=== PATIENT | female | born 1940 | race Caucasian/White ===

== ENCOUNTER 2017-02-09 17:31 | Observation (INO) | payer MEDICARE, OTHER ==
--- NOTE | ~2017-02-09 | CR63 ---
[facility] A Service of [facility] & [facility] RADIOLOGY TEXT RESULTS PATIENT: MÓNICA VALERIO LOCATION: [place] [address]- : 41 UNIT #: [id number] AGE: [address]: Bharathi Spivey MD SEX: F ORDER DR: [id number] [facility] [address] [place], [place] [address] [id number] I MR#: [id number] #: [id number] NAME: MÓNICA VALERIO : 1940 SEX: F STUDY DATE/TIME: 02/10/2017 20:11 UNIT: [facility] ROOM: [facility] STUDY DESCRIPTION: CR Chest 2 View Attending Physician: Bharathi Spivey M.D. Ordering Physician: Siria Husain M.D. Primary Care Physician: Panchito Prado Jr., M.D. MEDICAL IMAGING REPORT This report is preliminary unless electronic signature is present EXAM PA and lateral chest HISTORY Shortness of air, weakness and dizziness for 3 days. FINDINGS Two vies of the chest demonstrate mild elevation of the right hemidiaphragm and minimal fluid or pleural thickening in the right base. Cardiac size and pulmonary vascularity are within normal limits. Small calcified mediastinal and hilar nodes and small calcified granulomas in both lungs. IMPRESSION 1. No acute findings and no evidence of active disease in the lungs. 2. Minimal probable pleural thickening in the lateral right base and mild elevation of the right hemidiaphragm. Dictated by... Sedrick Perez M.D. THIS IS AN ELECTRONICALLY VERIFIED REPORT Sedrick Perez M.D. at 02/11/2017 9:05 PM Hebert TD: 02/11/2017 11:48 JOB #: [id number] MEDICAL IMAGING REPORT Page 1 of 1 COPY
--- NOTE | ~2017-02-09 | HP ---
Unit #: [id number] #: [id number] Patient: MÓNICA VALERIO [id number] [address] [address] [id number] I MR#: [id number] NAME: MÓNICA VALERIO ROOM: [address] Age: 76 Sex: F Admission Date: 02/09/2017 : 1940 Attending Physician: James Lisa M.D. Primary Care Physician: Panchito Prado Jr., M.D. HISTORY AND PHYSICAL CHIEF COMPLAINT Elevated blood sugars. HISTORY OF PRESENT ILLNESS The patient is a 76-year-old female with a history of ischemic cardiomyopathy, atrial fibrillation, COPD, and status post right lobectomy for resection of nonsmall cell carcinoma, who presented to the emergency room with abnormal blood sugar. The patient stated that patient checked the sugars earlier this morning, and the sugars were high up to 592. The patient called the primary care doctor, and he recommended her to come to the ER. The patient also complains of dizziness associated with nausea and vomiting. The patient is being admitted for the above reasons. The blood sugar in the emergency room is high up to 323. Patient had a CT of the head and CT of the abdomen and pelvis and both were negative. PAST MEDICAL HISTORY 1. History of ischemic cardiomyopathy with an EF of 35% to 40%, status post stent. 2. History of chronic atrial fibrillation for which she is anticoagulated. 3. Peripheral vascular disease. 4. Peptic ulcer disease. 5. Previous left arm DVT secondary to PICC line a few years ago. 6. Chronic obstructive pulmonary disease. 7. Diabetes. 8. Right lung mass. 9. Hyperlipidemia. 10. Grave disease. PAST SURGICAL HISTORY 1. Hysterectomy. 2. Appendectomy. 3. Right eye surgery. ALLERGIES SULFA, CODEINE, LATEX, SACCHARINE. HOME MEDICATIONS 1. Synthroid. 2. Toprol. 3. Potassium. 4. Crestor. 5. Cardizem. 6. Flonase. Unit #: [id number] #: [id number] Patient: MÓNICA VALERIO 7. [place]. 8. Humalog mix. 9. Proventil. 10. Symbicort. 11. Bumex. 12. Wellbutrin. 13. Calcium. FAMILY HISTORY Coronary artery disease. SOCIAL HISTORY The patient lives with her . She stopped smoking many years ago and does not drink alcohol. REVIEW OF SYSTEMS A 14-point review of systems was performed and only pertinent positive findings are described above. The remaining are negative. PHYSICAL EXAMINATION GENERAL: Patient is sitting in bed not in acute distress. VITAL SIGNS: Temperature 97.5, pulse 70, respiratory rate 16, blood pressure 142/72, and saturating 97% on room air. Blood pressure lying is 131/84 and heart rate lying is 76. Blood pressure sitting is 114/84 and heart rate sitting is 74. Repeat standing is 117/63 and heart rate standing is 80. Saturating 97% on room air. HEENT: Head normocephalic, atraumatic. Pupils equal, round, and reactive to light and accommodation. Extraocular movements are intact. Dry mucous membranes. NECK: Supple. No JVD. LUNGS: Decreased air entry at the bases. HEART: Irregular rate and rhythm. ABDOMEN: Soft. Positive bowel sounds. EXTREMITIES: No cyanosis, no clubbing. NEUROLOGIC: Patient is alert, awake, and oriented. No gross focal motor deficit. DIAGNOSTIC STUDIES LABORATORY: Glucose 323, BUN 17, creatinine 1.5, sodium 136, potassium 3.9, chloride 101, bicarb 26, calcium 9.2, total protein 7.7, AST 21, ALT 19, and alkaline phosphatase 109. Lipase 21. Troponin is 0.03. Beta-hydroxybutyrate is 0.09. INR is 2. WBC 9.2, hemoglobin 14.8, hematocrit 45.2, and platelets 265,000. Urinalysis shows 500 glucose and urobilinogen 0.2. CARDIOLOGY: EKG shows atrial fibrillation with a slow ventricular response and low-voltage QRS. ASSESSMENT 1. Dizziness. 2. Uncontrolled diabetes mellitus. 3. Acute kidney injury. 4. Nausea and vomiting. PLAN Admit the patient to observation with telemetry. Continue with gentle IV fluids with normal saline at 60 mL/hour for 10 hours only, half normal saline, continue with sliding scale. Will have the PCP/Endocrine consult Unit #: [id number] #: [id number] Patient: MÓNICA VALERIO as patient was referred by the PCP. Repeat the labs again, CBC, BMP, and hemoglobin A1c in the morning, and further recommendations will follow. Dictated by Sofie Castano/am TD: 02/09/2017 20:39 JOB #: [id number] HISTORY AND PHYSICAL X X HISTORY AND PHYSICAL
--- NOTE | ~2017-02-09 | CT71 ---
[facility] A Service of [facility] & [facility] RADIOLOGY TEXT RESULTS PATIENT: MÓNICA VALERIO LOCATION: [place] [address] : 41 UNIT #: [id number] AGE: [address]: Bharathi Spivey MD SEX: F ORDER DR: [id number] [facility] [address] [place], [place] [address] [id number] I MR#: [id number] #: [id number] NAME: MÓNICA VALERIO : 1940 SEX: F STUDY DATE/TIME: 02/09/2017 16:09 UNIT: [facility] ROOM: [facility] STUDY DESCRIPTION: CT Head Wo Contrast Attending Physician: James Lisa M.D. Ordering Physician: Henry Sullivan D.O. Primary Care Physician: Panchito Prado Jr., M.D. MEDICAL IMAGING REPORT This report is preliminary unless electronic signature is present EXAM CT brain without contrast, 02/09/2017 COMPARISON 04/11/2013 HISTORY SUPPLIED Dizziness, blurring vision beginning today. TECHNIQUE Transaxial imaging of the brain was performed without contrast and compared directly to the patient's prior study of 04/11/2013. This CT exam was performed with one or more of the following radiation dose reduction techniques: automatic exposure control, adjustment of mA and/or kV according to patient size, and iterative reconstruction. FINDINGS Ventricular size and configuration is normal for the patient's age. No intra or extraaxial mass lesions, fluid collections or mass effect are seen. No focal areas of low attenuation or hemorrhage. There are atherosclerotic calcifications in the vertebral arteries, basilar artery and carotid siphons. CONCLUSION Atherosclerotic calcifications. No acute intracranial findings. Dictated by... Radames Gunter M.D. THIS IS AN ELECTRONICALLY VERIFIED REPORT [facility] A Service of [facility] & [facility] RADIOLOGY TEXT RESULTS PATIENT: MÓNICA VALERIO LOCATION: [facility] 5511-23 : 41 UNIT #: [id number] AGE: [address]: Bharathi Spivey MD SEX: F ORDER DR: Radames Gunter M.D. at 02/11/2017 3:10 PM TULIO/janis TD: 02/09/2017 23:22 JOB #: [id number] MEDICAL IMAGING REPORT Page 1 of 1 COPY
--- NOTE | ~2017-02-09 | DS ---
Unit #: [id number] #: [id number] Patient: MÓNICA VALERIO [id number] [address] [place], [place] [address] [id number] I MR#: [id number] NAME: MÓNICA VALERIO ROOM: 551 Age: 76 Sex: F Admission Date: 02/09/2017 : 1940 Discharge Date: 02/11/2017 Attending Physician: Bharathi Spivey M.D. Primary Care Physician: Panchito Prado Jr., M.D. DISCHARGE SUMMARY ADMITTING DIAGNOSES Elevated blood sugars, lightheadedness and dizziness, noncompliance with medications, history of ischemic cardiomyopathy, atrial fibrillation, chronic obstructive pulmonary disease, history of right lobectomy for non-small cell lung cancer. FURTHER DIAGNOSIS Acute kidney injury. CONSULTANTS Dr. Husain. HISTORY OF PRESENTING ILLNESS The patient is a 76-year-old lady with past medical history of ischemic cardiomyopathy, atrial fibrillation on anticoagulation, COPD, right lobe lobectomy, presented to the emergency room with chief complaint of elevated blood sugars and not feeling well. She mentioned that she was feeling lightheaded and dizzy when she presented to the emergency room. In the initial evaluation, she was noted to have elevated creatinine high up to 1.5 with a baseline around 1.1. She was started on IV fluids. She was started on insulin. Her initial sugars were in 323. She was on 30 units of 75-25 b.i.d. at home. She follows up with Dr. Husain and we request him to evaluate the patient. Dr. Husain recommended to continue the same dosage of insulin. In addition, he is recommending to start her on Glucotrol 5 mg p.o. b.i.d. Sugars are down to 200s. She is doing better and she wants to go home. She also had a blood culture which was positive, initially was Gram-positive cocci, came back as coag-negative staph. We treated her vancomycin and we stop the vancomycin as coag-negative staph could be contaminant. She is doing better today. I spoke with the patient and her spouse in the room, encouraged her to be compliant with her medications. We are discharging her home today. PHYSICAL EXAMINATION VITAL SIGNS: On the day of the discharge, temperature 97.6, pulse is 70, respirations 20, blood pressure 113/58. GENERAL: The patient is alert and oriented x3, lying in the bed, in no acute distress. HEENT: Normocephalic, atraumatic. No icterus. PERRLA. Extraocular movements intact. NECK: Supple. No JVD. HEART: S1, S2. Regular rate and rhythm. CHEST: Bilateral equal entry. Clear to auscultation. ABDOMEN: Soft and nontender. EXTREMITIES: No edema. Normal pulses. DISCHARGE MEDICATIONS Glucotrol 5 mg p.o. b.i.d. is only new medication. She will be continuing Unit #: [id number] #: [id number] Patient: MÓNICA VALERIO all the rest of the home medications. Other medications include Proventil 0.83 mcg inhalation q.4 p.r.n. shortness of breath; Symbicort 160/4.5 mcg two puffs b.i.d.; Flonase 0.05% nasal spray; Spiriva 18 mcg inhalation; Coumadin 3 mg Thursday, Thursday, Thursday and 2 mg on Thursday, , Thursday, and Thursday; Wellbutrin XL 150 mg p.o. daily; Cardizem 120 mg p.o. daily; Metoprolol-XL 25 mg b.i.d. I am holding her Bumex, Crestor 20 mg at bedtime; Humalog 75-25, 30 units subcu daily; Singulair 10 mg at bedtime. She will be taking her home dosage of [place] (hydrocodone and acetaminophen) 7.5/325 mg. kindly note, I am not giving her any new prescriptions. She will be taking her own medications. Calcium and vitamin D 500 mg one tablet p.o. daily, KCl 20 mEq p.o. b.i.d., and Synthroid 125 mcg p.o. daily. We will let her restart Bumex in couple of days. Total time spent in her discharge 35 minutes. Dictated by..Sofie Negron/adriano TD: 02/12/2017 08:04 JOB #: [id number] DISCHARGE SUMMARY Page 1 of 1 X X DISCHARGE SUMMARY
--- NOTE | ~2017-02-09 | CO ---
Unit #: [id number] #: [id number] Patient: MÓNICA VALERIO [id number] [address] [address] [id number] I MR#: [id number] NAME: MÓNICA VALERIO ROOM: 55 Age: 76 Sex: F Admission Date: 02/09/2017 : 1940 Attending Physician: Bharathi Spivey M.D. Primary Care Physician: Panchito Prado Jr., M.D. CONSULTATION REPORT REASON FOR CONSULTATION High blood sugars. HISTORY OF PRESENT ILLNESS A 76-year-old female with ischemic cardiomyopathy, atrial fibrillation, COPD, type 2 diabetes mellitus, history of lung CA, status post right lobectomy of her lung, who reports that she has not been feeling well over the last few days. She has been having some dizziness, some nausea and vomiting. Her blood sugar this morning was 590. She called her primary care physician, who advised her to go to the emergency room. Her blood sugar was 323. Further workup done on her blood cultures. She had one set of blood cultures positive for gram-positive cocci. She has been currently started on IV antibiotics. Her CT of the head is negative and CT of the abdomen is normal. PAST MEDICAL HISTORY Ischemic cardiomyopathy with an ejection fraction 35% to 40% chronic anticoagulation therapy, peripheral vascular disease, peptic ulcer disease, type 2 diabetes mellitus, hyperlipidemia, hyperthyroidism, history of Graves ophthalmopathy. PAST SURGICAL HISTORY Hysterectomy, appendectomy, right eye surgery. ALLERGIES Sulfa drugs, codeine, and latex. HOME MEDICATIONS List is reviewed. The patient is on Humalog Mix 75/25 30 units b.i.d., levothyroxine, Toprol, potassium, Crestor, Cardizem, Bumex, Wellbutrin, and calcium. FAMILY HISTORY Coronary artery disease. SOCIAL HISTORY She lives with her , stopped tobacco many years ago. No alcohol. REVIEW OF SYSTEMS A 12-point review of systems is completed, please see HPI. PHYSICAL EXAMINATION GENERAL: Awake, alert, oriented to time, place, and person, in no acute respiratory distress. Unit #: [id number] #: [id number] Patient: MÓNICA VALERIO VITAL SIGNS: Afebrile temperature 97.8, pulse is 61, blood pressure 112/62. HEENT: EOMI. Pupils equally reactive to light. NECK: Supple. No thyromegaly noted. CHEST: Good air entry. CVS: Regular rhythm. No murmurs. ABDOMEN: Soft, nontender, bowel sounds positive. EXTREMITIES: No ulcers or amputations noted. DIAGNOSTIC STUDIES LABORATORY RESULTS: Labs reviewed. Her A1c is 13.7. UA is negative. ASSESSMENT 1. Type 2 diabetes mellitus, poorly controlled. 2. Bacteremia gram-positive cocci. 3. Ischemic cardiomyopathy. 4. Chronic atrial fibrillation. 5. Anticoagulation therapy. 6. Hypothyroidism. PLAN 1. We will restart her home insulin 70/30 NovoLog mix 30 units subcu b.i.d. She has received the first dose just now. 2. NovoLog medium dose supplement sliding scale. Continue Synthroid 125 mcg daily. Continue Lipitor 80 mg daily. Accu-Cheks a.c. and h.s. We will continue to follow the patient for further management. Dictated by... Sofie Pablo/adriano TD: 02/11/2017 03:26 JOB #: [id number] CONSULTATION REPORT Page 1 of 1 X Siria Husain MD X CONSULTATION REPORT
--- NOTE | ~2017-02-09 | EKG ---
PATIENT: MÓNICA VALERIO UNIT #: [id number] Ventricular Rate: 56 BPM Atrial Rate: 62 BPM QRS Duration: 84 ms Q-T Interval: 448 ms QTC Calculation(Bezet): 432 ms Calculated R Warren: 10 degrees Calculated T Warren: 28 degrees Diagnosis Line: Atrial fibrillation with slow ventricular response Diagnosis Line: Low voltage QRS Diagnosis Line: Abnormal ECG Diagnosis Line: When compared with ECG of 26-FEB-2015 16:59, Diagnosis Line: Criteria for Septal infarct are no longer Present Diagnosis Line: Confirmed by NADEGE MCNEILL MD ([id number]) on Diagnosis Line: 02/10/2017 2:24:17 PM INTERPRETING MD: OSITO HILL
--- NOTE | ~2017-02-09 | CT4 ---
[facility] A Service of [facility] RADIOLOGY TEXT RESULTS PATIENT: MÓNICA VALERIO LOCATION: [facility] 55-01 : 41 UNIT #: [id number] AGE: [address]: Bharathi Spivey MD SEX: F ORDER DR: [id number] [facility] [address] [facility] [place] [facility] [place], [place] [address] [id number] I MR#: [id number] #: [id number] NAME: MÓNICA VALERIO : 1940 SEX: F STUDY DATE/TIME: 02/09/2017 16:14 UNIT: [facility] ROOM: [facility] STUDY DESCRIPTION: CT Abd and Pelv Wo Cont Attending Physician: James Lisa M.D. Ordering Physician: Henry Sullivan D.O. Primary Care Physician: Panchito Prado Jr., M.D. MEDICAL IMAGING REPORT This report is preliminary unless electronic signature is present EXAM CT of the abdomen and pelvis without contrast INDICATIONS 76-year-old female with nausea, vomiting and diarrhea this morning. TECHNIQUE CT of the abdomen and pelvis was performed without contrast. Coronal and sagittal reformatted images obtained. This CT exam was performed with one or more of the following radiation dose reduction techniques: Automatic exposure control, adjustment of mA and/or kV according to patient size, and iterative reconstruction. No comparisons. FINDINGS There is minimal scar or atelectasis in the lung bases. Cholecystectomy. Liver unremarkable. Spleen unremarkable. Large cyst in the upper pole of the left kidney. Focal area of cortical scarring in the right kidney. Parapelvic cyst in the right kidney. The adrenal glands are unremarkable. There is some fatty infiltration of the pancreas. No dilated loops of bowel. PELVIS: Sigmoid diverticulosis. No evidence of diverticulitis. No free fluid. Hysterectomy. Bone windows are unremarkable. IMPRESSION 1. No acute intraabdominal or pelvic abnormality. 2. No evidence of bowel obstruction. 3. Sigmoid diverticulosis. No diverticulitis. 4. Bilateral renal cysts. 5. Cholecystectomy. [facility] A Service of [facility] RADIOLOGY TEXT RESULTS PATIENT: MÓNICA VALERIO LOCATION: [facility] 551-01 : [birth year] UNIT #: [id number] AGE: [address]: Bharathi Spivey MD SEX: F ORDER DR: Dictated by... Akshat Escobar M.D. THIS IS AN ELECTRONICALLY VERIFIED REPORT Akshat Escobar M.D. at 02/10/2017 8:08 AM ARS/loren TD: 02/09/2017 23:30 JOB #: [id number] MEDICAL IMAGING REPORT Page 1 of 1 COPY
[2017-02-09 13:52] LABS: URINE SOURCE CLEAN CATCH
[2017-02-09 13:57] LABS: URINE APPEARANCE CLEAR; URINE BILIRUBIN NEG (NEG); URINE BLOOD NEG (NEG); URINE COLOR YELLOW; URINE GLUCOSE 500 MG/DL (NEG); URINE KETONE NEG (NEG); URINE LEUKOCYTE ESTERASE NEG (NEG); URINE NITRATE NEG (NEG); URINE PROTEIN NEG (NEG); URINE UROBILINOGEN 0.2 MG/DL (NEG)
[2017-02-09 13:59] LABS: BASOPHIL% 0.4 % (0-2.5); EOSINOPHIL# 0.2 X10e3 (0-0.7); EOSINOPHIL% 2.6 % (0.0-7.0); HEMATOCRIT 45.2 % (35.0-45.0); HEMOGLOBIN 14.8 gm/dL (12.0-16.0); LYMPHOCYTE# 1.7 X10e3 (1.0-3.5); MEAN CELL VOLUME 89.1 FL (83-96); MEAN CORPUSCULAR HEMOGLOBIN 29.2 PG (28-34); MEAN CORPUSCULAR HGB CONC 32.8 g/dL (30-36); MEAN PLATELET VOLUME 9.8 FL (6.5-11.5); MONOCYTE# 0.7 X10e3 (0-1.0); MONOCYTE% 7.3 % (3.0-12.0); NEUTROPHIL# 6.5 X10e3 (1.5-7.1); NEUTROPHIL% 70.7 % (40-75); PLATELET COUNT 265 X10e3 (140-420); RED BLOOD COUNT 5.07 X10e (3.90-5.30); RED CELL DISTRIBUTION WIDTH 14.7 % (11.0-15.5); WHITE BLOOD COUNT 9.2 X10e3 (4.0-10.5)
[2017-02-09 14:08] LABS: CULTURE INDICATED? NO
[2017-02-09 14:27] LABS: ALBUMIN SERUM 3.7 g/dL (3.5-5.0); BETA HYDROXYBUTYRATE 0.09 MMOL/L (0.02-0.27); BILIRUBIN, DIRECT 0.1 mg/dL (0.0-0.2); BILIRUBIN,INDIRECT 0.4 mg/dL (0.0-0.9); BILIRUBIN,TOTAL 0.5 mg/dL (0.2-2.0); BUN/CREATININE RATIO 11.33; CALCIUM SERUM 9.2 mg/dL (8.4-10.2); CREATININE SERUM 1.5 mg/dL (0.6-1.4); POTASSIUM 3.9 mmol/L (3.5-5.1); PROTEIN TOTAL SERUM 7.7 g/dL (6.0-8.3)
[2017-02-09 14:30] LABS: DIFF IND NO
[2017-02-09 15:04] LABS: PROTHROMBIN TIME (PATIENT) 21.7 SECONDS (9.6-11.5)
[2017-02-09 15:53] LABS: POC - CKMB 2.7 ng/mL (0.0-7.9); POC - TROPONIN <0.05 ng/mL (<=0.05)
[2017-02-09 16:31] LABS: POC - CKMB 1.2 ng/mL (0.0-7.9); POC - TROPONIN <0.05 ng/mL (<=0.05)
[~2017-02-09 17:31] MED LIST: ACETAMINOPHEN PO; ALAVERT10 MG PO; ALBUTEROL; ALBUTEROL MININEB NEB; ALBUTEROL17 GM INH; AMARYL2 MG PO; ASPIRIN81 M1 PO; BUPROPION HCL150 M2 PO; BUPROPION HCL150 MG PO; CARTIA XT120 MG PO; COUMADIN2.5 MG PO; COUMADIN3 MG PO; COUMADIN4 MG PO; COUMADIN5 MG PO; DUONEB 2.5-0.5 M3 ML NEB; ESTRACE42.5 GM; FLAGYL PO; FLONASE 0.05% N16 G1; FUROSEMIDE40 MG/5 ML IVP; GLIMEPIRIDE2 MG PO; IMDUR-ER30 M1 PO; INSULIN ASPART; K-DUR10 MEQ PO; K-DUR20 ME1 PO; LASIX PO; LASIX80 MG PO; LEVAQUIN PO; LEVEMIR100 U/ML SQ; LEVOTHROID125 MCG PO; LISINOPRIL2.5 MG PO; LORTAB 5/500 TA1 TA1 PO; MEDROL4 MG/DOSE- PO; METFORMIN HCL500 M1 PO; METFORMIN HCL500 M2 PO; METOPROLOL SUCC25 MG PO; METOPROLOL TAR25 MG PO; MICRO-K10 MEQ PO; NICOTINE TRANSD21 MG TD; NITROGLYGERIN0.4 MG SL; NITROSTAT0.4 MG SL; NOVOLOG; NOVOLOG100 U/ML SUBQ; ONGLYZA; ONGLYZA5 MG PO; PANTOPRAZOLE SO40 MG PO; PRAVACHOL20 MG PO; PRAVASTATIN SOD20 MG PO; PREMARIN; PROTONIX PO; SPIRIVA18 MCG IH; SPIRIVA18 MCG INH; SYMBICORT 160/4.6 GM; SYMBICORT INH; SYNTHROID0.1 MG PO; SYNTHROID125 PO; VITAMIN D50000 UNIT PO; WELLBUTRIN SR150 MG PO; WELLBUTRIN100 MG PO; ZAROXYLYN PO; ZITHROMAX1 G/PKT PO; [UNRECOGNIZED DRUG - OTHER]
[2017-02-09] MEDS ORDERED: BUMEX2 MG PO (17:45)
[2017-02-09] MEDS ORDERED: SYMBICORT INH (17:45)
[2017-02-09] MEDS ORDERED: PROVENTIL0.83 MG/ML INH (17:45)
[2017-02-09] MEDS ORDERED: WELLBUTRIN XL150 M1 PO (17:46)
[2017-02-09] MEDS ORDERED: CALCIUM 500 + D1 TAB PO (17:48)
[2017-02-09] MEDS ORDERED: CARDIZEM CD120 M1 PO (17:49)
[2017-02-09] MEDS ORDERED: FLONASE 0.05% N16 G1 (17:50)
[2017-02-09] MEDS ORDERED: NORCO 7.5-3251 EACH PO (17:54)
[2017-02-09] MEDS ORDERED: SYNTHROID125 PO (18:05)
[2017-02-09] MEDS ORDERED: HUMALOG MI100 UNIT/5 SUBQ (18:05)
[2017-02-09] MEDS ORDERED: POTASSIUM CHLO10 ME1 PO (18:06)
[2017-02-09] MEDS ORDERED: TOPROL XL PO (18:06)
[2017-02-09] MEDS ORDERED: CRESTOR PO (18:06)
[2017-02-09] MEDS ORDERED: COUMADIN3 MG PO (23:30)
[2017-02-09] MEDS ORDERED: WARFARIN SODIUM2 MG PO (23:31)
[2017-02-09] MEDS ORDERED: SINGULAIR PO (23:32)
[2017-02-09] MEDS ORDERED: SPIRIVA18 MCG INH (23:32)
[2017-02-10 06:55] LABS: BASOPHIL% 0.3 % (0-2.5); DIFF IND NO; EOSINOPHIL# 0.2 X10e3 (0-0.7); HEMATOCRIT 41.4 % (35.0-45.0); HEMOGLOBIN 13.4 gm/dL (12.0-16.0); LYMPHOCYTE# 2.2 X10e3 (1.0-3.5); LYMPHOCYTE% 30.2 % (17.0-45.0); MEAN CELL VOLUME 89.5 FL (83-96); MEAN CORPUSCULAR HGB CONC 32.4 g/dL (30-36); MEAN PLATELET VOLUME 9.7 FL (6.5-11.5); MONOCYTE# 0.6 X10e3 (0-1.0); MONOCYTE% 8.5 % (3.0-12.0); NEUTROPHIL# 4.3 X10e3 (1.5-7.1); PLATELET COUNT 206 X10e3 (140-420); RED BLOOD COUNT 4.63 X10e (3.90-5.30); RED CELL DISTRIBUTION WIDTH 14.9 % (11.0-15.5); WHITE BLOOD COUNT 7.4 X10e3 (4.0-10.5)
[2017-02-10 07:29] LABS: BUN/CREATININE RATIO 14.16; CALCIUM SERUM 8.8 mg/dL (8.4-10.2); CREATININE SERUM 1.2 mg/dL (0.6-1.4); GLOM FILT RATE Estimated 46.5 mL/min (>60); POTASSIUM 4.2 mmol/L (3.5-5.1)
[2017-02-11 00:27] LABS: INR 1.9; PROTHROMBIN TIME (PATIENT) 20.3 SECONDS (9.6-11.5)
[2017-02-11 08:04] LABS: BASOPHIL# 0.1 X10e3 (0-0.3); BASOPHIL% 2.3 % (0-2.5); EOSINOPHIL# 0.2 X10e3 (0-0.7); EOSINOPHIL% 2.9 % (0.0-7.0); HEMATOCRIT 40.8 % (35.0-45.0); HEMOGLOBIN 13.5 gm/dL (12.0-16.0); LYMPHOCYTE# 1.8 X10e3 (1.0-3.5); LYMPHOCYTE% 29.7 % (17.0-45.0); MEAN CORPUSCULAR HEMOGLOBIN 29.8 PG (28-34); MEAN CORPUSCULAR HGB CONC 33.1 g/dL (30-36); MEAN PLATELET VOLUME 9.7 FL (6.5-11.5); MONOCYTE# 0.5 X10e3 (0-1.0); MONOCYTE% 8.2 % (3.0-12.0); NEUTROPHIL# 3.5 X10e3 (1.5-7.1); NEUTROPHIL% 56.9 % (40-75); PLATELET COUNT 202 X10e3 (140-420); RED BLOOD COUNT 4.54 X10e (3.90-5.30); RED CELL DISTRIBUTION WIDTH 14.9 % (11.0-15.5); WHITE BLOOD COUNT 6.1 X10e3 (4.0-10.5)
[2017-02-11 08:05] LABS: DIFF IND NO
[2017-02-11 08:10] LABS: INR 1.7; PROTHROMBIN TIME (PATIENT) 17.8 SECONDS (9.6-11.5)
[2017-02-11 08:34] LABS: BUN/CREATININE RATIO 15.45; CALCIUM SERUM 9.1 mg/dL (8.4-10.2); CREATININE SERUM 1.1 mg/dL (0.6-1.4); GLOM FILT RATE Estimated 51.5 mL/min (>60); MAGNESIUM 1.8 mg/dL (1.6-3.0); POTASSIUM 4.3 mmol/L (3.5-5.1)
[2017-02-11] MEDS ORDERED: GLUCOTROL PO (18:01)
== END 2017-02-11 20:32 | disposition home or self-care (01) ==
LOC: CED 17:31 → CEDOF 18:30 → C5B 20:41
PROVIDERS: Emergency Medicine; Internal Medicine
DX: E11.65 Type 2 diabetes mellitus with hyperglycemia (principal); R78.81 Bacteremia; B96.89 Other specified bacterial agents as the cause of diseases classified elsewhere; I25.5 Ischemic cardiomyopathy; I48.2 Chronic atrial fibrillation; Z79.4 Long term (current) use of insulin; Z79.01 Long term (current) use of anticoagulants; E03.9 Hypothyroidism, unspecified; J44.9 Chronic obstructive pulmonary disease, unspecified; Z82.49 Family history of ischemic heart disease and other diseases of the circulatory system; R11.2 Nausea with vomiting, unspecified; Z85.118 Personal history of other malignant neoplasm of bronchus and lung; Z90.2 Acquired absence of lung [part of]; Z91.19 Patient's noncompliance with other medical treatment and regimen; Z90.710 Acquired absence of both cervix and uterus; Z90.49 Acquired absence of other specified parts of digestive tract
CPT/HCPCS: 36415; 70450; 71020; 74176; 80048; 80076; 81003; 82010; 82553; 82947; 83036; 83690; 83735; 84443; 84484; 85025; 85610; 85730; 87040; 93005; 94640; 94760; 96361; 96374; 96375; 99285; G0378; J1815; J2405; J3370